=== PATIENT | female | born 1995 | race Asian ===

== ENCOUNTER 2018-05-13 16:28 | Emergency (ER) | payer OTHER ==
[~2018-05-13] VITALS: Ht 154.9 cm; Wt 46.3 kg
[2018-05-13 16:57] VITALS: BP 124/85
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
[2018-05-13] MEDS ORDERED: ROBAXIN500 MG PO (17:07)
[2018-05-13] MEDS ORDERED: LIDOCAINE700 M1 TP (17:07)
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
[2018-05-13 17:15] VITALS: BP 122/70
[2018-05-13] MEDS ORDERED: Methocarbamol 500mg tab ORAL ONE (17:15)
[2018-05-13] MEDS ORDERED: traMADol 50mg tab ORAL ONE (17:15)
--- NOTE | 2018-05-13 17:26 | NUR ---
ER DISCHARGE NOTE: Patient is cleared to be discharged per ERPA, pt is aox4, on room air, with stable vital signs. pt was given dc and prescription instructions, pt was able to verbalize understanding, pt id band removed. pt is able to ambulate with steady gait. pt took all belongings.
== END 2018-05-13 17:44 | disposition home or self-care (01) ==
LOC: EMR 17:21
DX: M54.5 Low back pain (principal); V43.52XA Car driver injured in collision with other type car in traffic accident, initial encounter; Y92.414 Local residential or business street as the place of occurrence of the external cause
CPT/HCPCS: 99282